=== PATIENT | female | born 1970 | race Caucasian/White ===

== ENCOUNTER → 2016-12-13 | Outpatient (CLI) | payer OTHER ==
[~2016-12-13] MED LIST: CLIN150C15 PO; MTR600X PO; OXYC-57 PO; VSK5 PO
[2016-12-13 10:03] LABS: CHOLESTEROL/HDL RATIO 2.9
== END ==
LOC: C.LAB 06:58
PROVIDERS: ATTEND Obstetrics & Gynecology
DX: Z01.419 Encounter for gynecological examination (general) (routine) without abnormal findings (principal)

== ENCOUNTER → 2017-02-03 | Outpatient (CLI) | payer OTHER ==
--- NOTE | 2017-02-04 15:32 | MAMMOGRAPHY REPORT ---
BILATERAL DIGITAL SCREENING MAMMOGRAM TOMOSYNTHESIS WITH CAD: 02/03/2017 CLINICAL HISTORY: Routine screening. TECHNIQUE: Breast tomosynthesis in addition to standard 2D mammography was performed. Current study was also evaluated with a Computer Aided Detection (CAD) system. COMPARISON: Comparison is made to exams dated: 04/24/2014 mammogram, 03/20/2013 mammogram, 08/10/2011 mammogram, 02/01/2011 mammogram, 06/19/2010 mammogram, and 06/02/2010 mammogram - [facility]. BREAST COMPOSITION: The tissue of both breasts is heterogeneously dense, which may obscure small mas ses. FINDINGS: No suspicious masses, calcifications, or areas of architectural distortion are noted in ei ther breast. There has been no significant interval change compared to prior exams. Circumscribed be nign appearing mass in the left medial breast at approximately 9:00 is stable dating back to at least the 2009 exam. IMPRESSION: ACR BI-RADS CATEGORY 2: BENIGN There is no mammographic evidence of malignancy. A 1 year screening mammogram is recommended. The pa tient will receive written notification of the results. Approximately 10% of breast cancers are not detected with mammography. A negative mammographic report should not delay biopsy if a clinically suggestive mass is present. Anisha Steel M.D. ah/:02/03/2017 16:43:50 Horticultural Farmer: Marlnee WILKS)(M), [facility] letter sent: Normal 1/2 BI-RADS Code: ACR BI-RADS Category 2: Benign
== END | disposition home or self-care (01) ==
LOC: C.MAMM 13:59
PROVIDERS: ATTEND Obstetrics & Gynecology
DX: Z12.31 Encounter for screening mammogram for malignant neoplasm of breast (principal)

== ENCOUNTER → 2017-07-11 | Outpatient (CLI) | payer OTHER ==
--- NOTE | 2017-07-11 11:10 | DIAGNOSTIC IMAGING REPORT ---
LUMBAR SPINE W/O CONTRAST CLINICAL HISTORY: 47 years-old Female with DEGENERATIVE DISC DISEASE. Chronic low back pain with numbness of the right lower extremity. COMPARISON: CT abdomen and pelvis 09/13/2011. TECHNIQUE: Multiplanar, multi sequence MRI of the lumbar spine was performed without intravenous contrast. FINDINGS: No acute fracture, subluxation or focal bone marrow edema. A 3 mm synovial cyst is seen adjacent to the right facet at L5-S1 and also adjacent to the right facet at L1-L2. A 4 mm synovial cyst is seen adjacent to the left L4-L5 facet. Signal within the spinal cord appears normal. Conus medullaris terminates at the L1 level. No gross abnormality identified involving the imaged lower chest, abdomen or pelvis. There is an ovoid T1 hyperintense 4.1 cm structure within the subcutaneous fat at the level of L5-S1 nicely seen on image 14 series 3 which may reflect subcutaneous fat or possibly a subcutaneous lipoma. T12-L1: No central canal or neural foraminal stenosis. L1-L2: No central canal or neural foraminal stenosis. L2-L3: No central canal or neural foraminal stenosis. L3-L4: Mild disc desiccation with minimal posterior spondylitic spurring and small posterior disc bulge which flattens the ventral thecal sac. No significant central canal or foraminal narrowing. L4-L5: Mild disc desiccation with spondylitic spurring. Small circumferential annular disc bulge with posterior annular fissure. There is flattening of the ventral thecal sac without significant central canal stenosis. There is mild inferior foraminal stenosis bilaterally. L5-S1: Moderate intervertebral disc space narrowing with Modic type II endplate degenerative changes. Broad-based posterior disc osteophyte complex formation flattens the ventral thecal sac. Mild bilateral facet arthrosis is also present contributing to mild bilateral inferior foraminal stenosis. IMPRESSION: 1. Mild disc desiccation with spondylitic spurring and small circumferential annular disc bulge and posterior annular fissure at L4-L5 flattens the ventral thecal sac and causes mild inferior foraminal stenosis bilaterally. 2. At L5-S1 there is moderate intervertebral disc space narrowing with endplate degenerative changes, broad-based posterior disc osteophyte complex formation and mild facet arthrosis contributing to mild foraminal stenosis bilaterally. 3. No significant central canal narrowing. The above report was generated using voice recognition software. It may contain grammatical, syntax or spelling errors. Dictated: 07/11/2017 10:25 AM Transcribed: 07/11/2017 11:09 AM [email or web address] Electronically signed by: Edison Velazco M.D. 07/11/2017 12:08 PM Dictated Date/Time: 07/11/2017 10:25 AM
== END | disposition home or self-care (01) ==
LOC: C.MRI 09:39
PROVIDERS: ATTEND Orthopaedic Surgery Orthopaedic Surgery of the Spine
DX: M51.36 Other intervertebral disc degeneration, lumbar region (principal); M51.37 Other intervertebral disc degeneration, lumbosacral region